=== PATIENT | female | born 1960 | race Caucasian/White ===

== ENCOUNTER 2021-08-30 08:51 | Outpatient (CLI) | payer OTHER, SELFPAY ==
--- NOTE | ~2021-08-30 | MM_ITS ---
EXAMINATION: MM screening [facility] BI w laura HISTORY: Screening mammogram TECHNIQUE: Craniocaudal and mediolateral oblique 3-D tomosynthesis images were obtained and synthetic 2-D images were generated. CAD analysis was submitted and interpreted. COMPARISON: 06/19/2019, 06/17/2019, 06/18/2018 BREAST PARENCHYMAL COMPOSITION: There are scattered areas of fibroglandular density. FINDINGS: Stable grouped calcifications in the left breast have previously undergone biopsy. There is no evidence of suspicious mass, calcification, or architectural distortion to suggest malignancy in either breast. There has been no suspicious interval change. IMPRESSION: 1. No mammographic evidence of malignancy. 2. Recommend routine screening mammography in one year. BI-RADS Category 2: Benign finding(s). Reviewed, dictated and finalized at location A. AG APPLIQUER
== END 2021-08-30 08:52 | disposition home or self-care (01) ==
LOC: ANHIMG 08:53
PROVIDERS: PCP Family Medicine; Visit Provider Obstetrics & Gynecology
DX: Z12.31 Encounter for screening mammogram for malignant neoplasm of breast (principal)
CPT/HCPCS: 77063; 77067

== ENCOUNTER 2022-02-08 09:19 | Outpatient (CLI) | payer BC, SELFPAY ==
[2022-02-08 09:58] LABS: Hemoglobin A1C 5.4 % (<5.7)
[2022-02-08 10:23] LABS: Alanine Aminotransferase 14 U/L (4-35); Albumin Level 4.5 g/dL (3.5-5.1); Alkaline Phosphatase 63 U/L (38-126); Anion Gap 7 mmol/L (8-16); Aspartate Amino Transferase 25 U/L (14-36); Bilirubin,Total 0.3 mg/dL (0.2-1.3); Blood Urea Nitrogen 9 mg/dL (7-17); Calcium 8.9 mg/dL (8.4-10.2); Carbon Dioxide 27 mmol/L (22-30); Chloride 105 mmol/L (98-107); Cholesterol 205 mg/dL (0-200); Estimated Glomerular Filt Rate > 60; Glucose 97 mg/dL (65-110); HDL Direct 58 mg/dL; Potassium 4.3 mmol/L (3.4-5.0); Sodium 139 mmol/L (137-145); Triglycerides 80 mg/dL (<150)
[2022-02-08 10:34] LABS: LDL Cholesterol Direct 100 mg/dL
== END 2022-02-08 09:20 | disposition home or self-care (01) ==
PROVIDERS: PCP Family Medicine; Visit Provider Family Medicine
DX: R73.03 Prediabetes (principal); Z76.89 Persons encountering health services in other specified circumstances; Z82.49 Family history of ischemic heart disease and other diseases of the circulatory system; Z83.3 Family history of diabetes mellitus; Z83.438 Family history of other disorder of lipoprotein metabolism and other lipidemia
CPT/HCPCS: 36415; 80053; 80061; 83036

== ENCOUNTER 2022-05-30 10:28 | Emergency (ER) | payer BC, SELFPAY ==
--- NOTE | 2022-05-30 10:29 | ED.EAR ---
HPI - Ear Problem General Chief complaint: Ear Stated complaint: fb ear/ringing Time Seen by Provider: 05/30/22 10:29 Source: patient Mode of arrival: ambulatory Limitations: no limitations History of Present Illness HPI Narrative: Ms. Mckinnon is a 61-year-old female patient presenting to the clinic today with complaints of possible foreign body in her right ear with some ringing. She reports she is having congestion and ringing in her right ear. She is unaware of having anything in her ear but thinks there may be some foreign body in her ear. She has mild pain. She denies any fever or chills. She denies any dizziness, nausea, or vomiting Related Data Home Medications Medication Instructions Recorded Confirmed estradiol 10 mg implant pellet mg subcut 06/29/21 02/09/22 estradiol-norethindrone acet 0.5 1 tablet PO DAILY 06/29/21 05/30/22 mg-0.1 mg tablet (Amabelz) Allergies Allergy/AdvReac Type Severity Reaction Status Date / Time oxaprozin Allergy Intermediate HIVES Verified 05/30/22 10:35 Review of Systems Review of Systems: Pertinent positives per HPI. Patient denies any fever, chills, rash, headache, visual changes, dizziness, cough, runny nose, sore throat, shortness of breath, chest pain, palpitations, nausea, vomiting, diarrhea, constipation, abdominal pain, or any urinary issues. PMFSH Surgical History Surgical History H/O: hysterectomy Family History Family History Father Hypertension Heart problem Cerebrovascular accident Mother Asthma Diabetes mellitus Depression Heart problem Thyroid disorder Social History Social History Alcohol intake: current Substance use: never Comments At the time of my signature, I reviewed and agree with the nursing past medical, surgical, social, and family history. There is no relevant family history pertinent to the patient complaint. Exam Narrative: General: Well-developed, well nourished, in no apparent distress Head: Normocephalic, atraumatic Eyes: Pupils equally round and reactive to light bilaterally, EOM intact, sclera and conjunctive clear, no discharge, lids normal Ears: Left TMs intact and clear, right TM intact, bulging with fluid behind the TM, left ear canal clear, right ear canal swollen erythematous with greenish discharge in the canal that was originally up against the tympanic membrane, ear lavage was performed which displaced the discharge, grossly hearing normal. Nose: Nares patent, clear nasal discharge, no inflammation, no sinus tenderness. Mouth: Oropharynx without lesions or masses, good dentition, MMM. Neck: Supple, trachea midline, no enlargement of anterior or posterior cervical nodes, no thyroid masses or goiter palpable. Cardio: Regular rate and rhythm, s1 and s2 normal, no murmur appreciated. Resp: Clear to auscultation bilaterally anteriorly and posteriorly, no rhonchi, rales, wheezing or rubs Course Course Emergency Course: Portions of this record may have been created with voice recognition software. Level of Care: Express Care Visit Vital Signs Vital signs: Vital signs reviewed Procedures Ear Wax Removal Right Ear: Ear Wax Removal Date: 05/30/22 Results: Re-examined: cerumen removed completely TM Examination: TM(s) intact, normal appearance (Fluid noted behind the right TM) Ear Canal Exam: other (Erythemic with greenish drainage) Patient Tolerated Procedure: well Complications: no problems Technique: ear canal irrigated Additional Comments: Verbal consent obtained for ear lavage. Risk and benefits explained to patient and they voiced understanding. Warm water was used to irrigate the right ear canal. Cerumen was successfully removed from ear canal. Patient tolerated wel
[2022-05-30 10:34] VITALS: BP 135/76; PULSE 79; RESP 16; TEMP 36.7; O2SAT 100
[2022-05-30 10:35] VITALS: BP 135/76; PULSE 79; RESP 16; TEMP 36.7; O2SAT 100
--- NOTE | 2022-05-30 10:43 | PC.NURSE ---
No foreign body found after right ear irrigation. 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
== END 2022-05-30 10:54 | disposition home or self-care (01) ==
PROVIDERS: Emergency Provider Nurse Practitioner Family; PCP Family Medicine
DX: H69.81 Other specified disorders of Eustachian tube, right ear (principal); H60.311 Diffuse otitis externa, right ear; H65.01 Acute serous otitis media, right ear; H61.21 Impacted cerumen, right ear
CPT/HCPCS: 69209; 99213; G0463

== ENCOUNTER 2022-08-16 09:54 | Outpatient (CLI) | payer BC, SELFPAY | END 2022-08-16 09:55 | disposition home or self-care (01) | LOC: ANHAUDIO 09:55 | PROVIDERS: PCP Family Medicine; Visit Provider Otolaryngology | DX: H91.93 Unspecified hearing loss, bilateral (principal) | CPT/HCPCS: 92557; 92567 ==

== ENCOUNTER 2023-01-16 09:19 | Outpatient (CLI) | payer BC, SELFPAY ==
[2023-01-16 18:56] LABS: Hematocrit 43.1 % (37.0-47.0); Hemoglobin 13.7 g/dL (12.0-15.0); Mean Corpuscular HGB Conc 31.8 g/dl (32-36); Mean Corpuscular Hemoglobin 30.2 pg (26-34); Mean Corpuscular Volume 95.1 fl (80-100); Mean Platelet Volume 11.1 fl (7.4-10.4); Platelet Count Result 261 k/mm3 (150-375); Red Blood Count 4.53 M/mm3 (4.2-5.4); Red Cell Distribution Width 13.5 % (11.5-14.5); White Blood Count 5.3 K/mm3 (4.5-10.0)
[2023-01-16 19:31] LABS: Alanine Aminotransferase 18 U/L (6-35); Albumin Level 4.3 g/dL (3.5-5.1); Alkaline Phosphatase 64 U/L (38-126); Anion Gap 7 mmol/L (8-16); Aspartate Amino Transferase 30 U/L (14-36); Bilirubin,Total 0.4 mg/dL (0.2-1.3); Blood Urea Nitrogen 12 mg/dL (7-17); Calcium 8.9 mg/dL (8.4-10.2); Carbon Dioxide 29 mmol/L (22-30); Chloride 102 mmol/L (98-107); Cholesterol 212 mg/dL (0-200); Estimated Glomerular Filt Rate > 60; Glucose 88 mg/dL (65-110); HDL Direct 52 mg/dL; Potassium 4.3 mmol/L (3.4-5.0); Sodium 138 mmol/L (137-145); Triglycerides 134 mg/dL (<150)
[2023-01-16 20:01] LABS: Thyroid Stimulating Hormone 0.603 uIU/mL (0.465-4.680)
[2023-01-16 20:36] LABS: LDL Cholesterol Direct 111 mg/dL
== END 2023-01-16 09:20 | disposition home or self-care (01) ==
LOC: ANHGOSHLAB 09:20
PROVIDERS: PCP Family Medicine; Visit Provider Family Medicine
DX: E78.5 Hyperlipidemia, unspecified (principal); Z83.438 Family history of other disorder of lipoprotein metabolism and other lipidemia; Z79.899 Other long term (current) drug therapy
CPT/HCPCS: 36415; 80053; 80061; 84443; 85027

== ENCOUNTER 2023-08-28 15:55 | Outpatient (CLI) | payer BC, SELFPAY ==
--- NOTE | ~2023-08-28 | MM_ITS ---
EXAMINATION: MM screening [facility] BI w laura HISTORY: Screening mammogram TECHNIQUE: Craniocaudal and mediolateral oblique 3-D tomosynthesis images were obtained and synthetic 2-D images were generated. CAD analysis was submitted and interpreted. COMPARISON: 08/30/2021 bilateral screening mammogram 06/19/2019 diagnostic right mammogram and right breast ultrasound examination 06/17/2019 bilateral screening mammogram BREAST PARENCHYMAL COMPOSITION: The breasts are heterogeneously dense, which may obscure small masses . FINDINGS: Biopsy markers noted on the left; history of prior benign left breast biopsy. Suggestion of some increased density in the right subareolar area on MLO view. Diagnostic right mammo gram is recommended, with ultrasound if required. Occasional scattered bilateral benign calcifications. Microcalcifications in the upper outer quadrant of the left breast were previously biopsied and reported benign pathology. Otherwise there is no evidence of suspicious mass, calcification, or architectural distortion to sug gest malignancy in either breast. There has been no suspicious interval change other than the possibl e increased density in the right subareolar area on the MLO view.. IMPRESSION: 1. Suggestion of interval increased density in the subareolar area of the right breast on MLO view 2. Diagnostic right mammogram is recommended, with ultrasound if required. BI-RADS Category 0: Incomplete: Needs additional imaging evaluation. Reviewed, dictated and finalized at location A. VISION CAMERA OPERATOR
== END 2023-08-28 15:56 | disposition home or self-care (01) ==
LOC: ANHIMG 16:03
PROVIDERS: PCP Family Medicine; Visit Provider Obstetrics & Gynecology
DX: Z12.31 Encounter for screening mammogram for malignant neoplasm of breast (principal); R92.8 Other abnormal and inconclusive findings on diagnostic imaging of breast
CPT/HCPCS: 77063; 77067

== ENCOUNTER 2023-09-19 12:37 | Outpatient (CLI) | payer BC, SELFPAY ==
--- NOTE | ~2023-09-19 | MMUS_ITS ---
EXAMINATION: US breast RT limited, MM diagnostic [facility] RT w laura HISTORY: Increased prominence of right periareolar soft tissue TECHNIQUE: Additional 3-D tomosynthesis images of the right breast were performed and synthetic 2-D i mages were generated. CAD analysis was submitted and interpreted. High resolution Limited right breas t ultrasound was performed. COMPARISON: Comparison to multiple prior studies sequentially, with oldest reviewed study dated 06/17. BREAST PARENCHYMAL COMPOSITION: Breast composed of scattered areas of fibroglandular density FINDINGS: MAMMOGRAPHIC FINDINGS: There are no suspicious masses, calcifications or architectural distortion right breast to suggest ma lignancy. ULTRASOUND: Limited right breast ultrasound: There are branching dilated periareolar ducts. No suspicious solid m asses. IMPRESSION: 1. No evidence for malignancy in the right breast. 2. Routine yearly screening mammogram and regular clinical breast examination are recommended. BI-RADS Category 1: Negative Reviewed, dictated and finalized at location A. GER HEAV[employer] EQUIPMENT IMPRESSION: 1. No evidence for malignancy in the right breast. 2. Routine yearly screening mammogram and regular clinical breast examination a re recommended. BI-RADS Category 1: Negative
== END 2023-09-19 12:38 | disposition home or self-care (01) ==
PROVIDERS: PCP Family Medicine; Visit Provider Obstetrics & Gynecology
DX: R92.8 Other abnormal and inconclusive findings on diagnostic imaging of breast (principal)
CPT/HCPCS: 76642; 77061; 77065; G0279

== ENCOUNTER 2024-02-17 08:38 | Outpatient (CLI) | payer BC, SELFPAY ==
[2024-02-17 14:07] LABS: Hematocrit 45.3 % (37.0-47.0); Hemoglobin 14.1 g/dL (12.0-15.0); Mean Corpuscular HGB Conc 31.1 g/dl (32-36); Mean Corpuscular Hemoglobin 29.8 pg (26-34); Mean Corpuscular Volume 95.8 fl (80-100); Mean Platelet Volume 11.4 fl (7.4-10.4); Platelet Count Result 269 k/mm3 (150-375); Red Blood Count 4.73 M/mm3 (4.2-5.4); Red Cell Distribution Width 13.5 % (11.5-14.5); White Blood Count 5.2 K/mm3 (4.5-10.0)
[2024-02-17 14:47] LABS: Alanine Aminotransferase 23 U/L (6-35); Albumin Level 4.5 g/dL (3.5-5.1); Alkaline Phosphatase 63 U/L (38-126); Anion Gap 6 mmol/L (4-12); Aspartate Amino Transferase 44 U/L (14-36); Bilirubin,Total 0.5 mg/dL (0.2-1.3); Blood Urea Nitrogen 17 mg/dL (7-17); Calcium 9.4 mg/dL (8.4-10.2); Carbon Dioxide 30 mmol/L (22-30); Chloride 102 mmol/L (98-107); Cholesterol 198 mg/dL (0-200); Estimated Glomerular Filt Rate > 60; Glucose 76 mg/dL (65-110); HDL Direct 62 mg/dL; Potassium 4.2 mmol/L (3.4-5.0); Sodium 138 mmol/L (137-145); Triglycerides 96 mg/dL (<150)
[2024-02-17 14:51] LABS: LDL Cholesterol Direct 106 mg/dL
[2024-02-17 14:57] LABS: Vitamin D 25 Hydroxy 60.2 ng/mL
[2024-02-17 14:58] LABS: Hemoglobin A1C 5.4 % (<5.7)
[2024-02-17 15:03] LABS: Thyroid Stimulating Hormone 0.637 uIU/mL (0.465-4.680)
== END 2024-02-17 08:39 | disposition home or self-care (01) ==
LOC: ANHGOSHLAB 08:39
PROVIDERS: PCP Family Medicine; Visit Provider Nurse Practitioner
DX: Z00.00 Encounter for general adult medical examination without abnormal findings (principal); E55.9 Vitamin D deficiency, unspecified; R73.03 Prediabetes
CPT/HCPCS: 36415; 80053; 80061; 82306; 83036; 84443; 85027

== ENCOUNTER 2024-08-22 08:36 | Outpatient (CLI) | payer MEDICARE, OTHER, SELFPAY ==
[2024-08-22 09:19] LABS: Hematocrit 42.4 % (37.0-47.0); Hemoglobin 13.7 g/dL (12.0-15.0); Mean Corpuscular HGB Conc 32.3 g/dl (32-36); Mean Corpuscular Hemoglobin 28.5 pg (26-34); Mean Corpuscular Volume 88.1 fl (80-100); Mean Platelet Volume 10.7 fl (7.4-10.4); Platelet Count Result 220 k/mm3 (150-375); Red Blood Count 4.81 M/mm3 (4.2-5.4); Red Cell Distribution Width 14.9 % (11.5-14.5); White Blood Count 4.2 K/mm3 (4.5-10.0)
[2024-08-22 09:31] LABS: Alanine Aminotransferase 29 U/L (6-35); Alkaline Phosphatase 60 U/L (38-126); Anion Gap 4 mmol/L (4-12); Aspartate Amino Transferase 29 U/L (14-36); Bilirubin,Total 0.4 mg/dL (0.2-1.3); Blood Urea Nitrogen 21 mg/dL (7-17); Calcium 8.8 mg/dL (8.4-10.2); Carbon Dioxide 28 mmol/L (22-30); Chloride 107 mmol/L (98-107); Cholesterol 166 mg/dL (0-200); Estimated Glomerular Filt Rate > 60; Glucose 93 mg/dL (65-110); HDL Direct 50 mg/dL; Potassium 4.4 mmol/L (3.4-5.0); Sodium 139 mmol/L (137-145); Triglycerides 89 mg/dL (<150)
[2024-08-22 09:42] LABS: LDL Cholesterol Direct 81 mg/dL
[2024-08-22 10:01] LABS: Thyroid Stimulating Hormone 0.703 uIU/mL (0.465-4.680)
== END 2024-08-22 08:37 | disposition home or self-care (01) ==
LOC: ANHLAB 08:38
PROVIDERS: PCP Family Medicine; Visit Provider Family Medicine
DX: E78.5 Hyperlipidemia, unspecified (principal); F41.9 Anxiety disorder, unspecified; R73.03 Prediabetes; Z79.899 Other long term (current) drug therapy
CPT/HCPCS: 36415; 80053; 80061; 84443; 85027

== ENCOUNTER 2024-11-19 10:44 | Outpatient (CLI) | payer MEDICARE, OTHER, SELFPAY ==
[2024-11-19 12:33] LABS: Influenza A QL RT-PCR Negative (Negative); Influenza B QL RT-PCR Negative (Negative); RSV RNA, RT-PCR Negative (Negative); SARS-CoV-2 RNA PCR Negative (Negative)
== END 2024-11-19 10:45 | disposition home or self-care (01) ==
PROVIDERS: PCP Family Medicine; Visit Provider Family Medicine
DX: R50.9 Fever, unspecified (principal); R69 Illness, unspecified
CPT/HCPCS: 87637

== ENCOUNTER 2025-02-20 08:16 | Outpatient (CLI) | payer MEDICARE, OTHER, SELFPAY ==
--- OUTSIDE RECORDS SUMMARY | 2025-02-20 08:21 | XMS_ITS | Continuity of Care Document ---
Author Organization [facility] Address [address] [place] [address] Phone Care Team Providers Care Radiation Protection Technician Name Role Phone Miles Ugalde MD Unavailable Unavailable Allergies, Adverse Reactions, Alerts Substance Reaction Status Criticality No Known Allergies Active No Inform ation Medications Medication Instructions Dosage Effective Dates (start - stop) Status Comments tobramycin 0.3 %-dexamethasone 0.1 % eye drops,suspension instill 1 drop by ophthalmic route in the right eye four times a day - Active LOTEMAX (unknown strength) instill 1 - 2 drop by ophthalmic route 3 times every day into the lower conjunctival sac of the affected eye(s) beginning 24 hours after surgery and continuing throughout the first 2weeks of the post operative period. Not Available - Active Systane Gel 0.3 % eye gel - Active hormone pill (unknown strength) Not Available - Active Procedures Procedure Date Post-op Follow-up Visit Removal Of Eye Lesion Post-op Follow-up Visit Removal Of Eye Lesion Eye Exam, New Patient Fundus Photography W/ Report Advance Directives Directive Yes / No Effective Date File Name No Information Encounters Encounter Description Practice Location Reason(s) For Visit Diagnoses Date Provider Providers Copied on Encounter [facility], [facility] [address], [place], [place], [id number], [place] tel:[phone] SEC Rony DOVER Professional Post op SK OD (chief complaint) Encounter for examination following surgery 5 Aftab Aquino. [address] [facility], [facility] A, [place], [place], [address], [place]. tel:[phone] Referring Provider: Darius Min OD, [address] [place] [address], [facility]. tel:[phone] [facility], [facility] [employer] [address], [place], [place], [address], [place] tel:[phone] SEC Rony DOVER Professional Procedure (chief complaint) Salzmann's corneal degen, right eye Sep- 5 [place] Chaitanya. [facility] [employer] [facility], [address], [place], [address], [place]. tel:[phone] Referring Provider: Darius Min OD, [address] [place] [address], [address]. tel:[phone] [facility], [facility] [employer] [address], [place], [place], [address], [place] tel:[phone] SEC Ceferino Kinsey 4 DAY PO SK OS (chief complaint) Follow-up examination after surgery 5 [place] Chaitanya. [facility] [employer] [facility], [address], [place], [place], [address], [place]. tel:[phone] Referring Provider: Darius Min OD, [address] [place] [address], [address]. tel:[phone] [facility], [facility] [employer] [address], [place], [place], [address], [place] tel:[phone] SEC Ceferino Kinsey Procedure (chief complaint) Nodular corneal degeneration Dec- 5 [place] Chaitanya. [facility] [employer] [facility], [address], [place], [address], [place]. tel:[phone] Referring Provider: Darius Min OD, [address] [place] [address], [address]. tel:[phone] [facility], [address], [place], [place], [address], tel:[phone] BUD DOVER Professional Complete Eye Exam (chief complaint) Nodular corneal degeneration 0 5 [place] Chaitanya. [address], [address], [place], [place], [address], [place]. tel:[phone] Referring Provider: Chaitanya Montesinos, [address], [place], [address]. tel:[phone] Family History Family Member Type Diagnosis Age At Onset Problem (finding) Family history of Diabe alethea mellitus Problem (finding) Family history of glauc elizabeth Payers Payer name Insurance type Covered democrat ID Authoriza tion(s) No Information Social History Type Description Quantity Date Captured Comments Alcohol Use Details wine 1 glass weekly Caffeine Use Details coffee 2 cups per day Tobacco Use Status Never smoked tobacco 2014 Smoking Status Never smoker Non-Smoking Tobacco Use Details : No Details Available : No Details Available Sex Female Chief Complaint And Reason For Visit From encounter dated '09/16/2015 09:15'. Post op SK OD (chief complaint). Description: The 55 year old female presents for a Post op SK OD. Patient denies any v/a changes at this time OD. Patient denies any pain or discomfort at this time OD. Patient using Tobra dex QID OD, and no preservative AT's QID OD. Reason For Referral Reason For Referral No Information History Of Present Illness Encounter Date Complaint History Of Prese nt Illness Post op SK OD The 55 year old female presents for a Post op SK OD. Patient denies any v/a changes at this time OD. Patient denies any pain or discomfort at this time OD. Patient using Tobra dex QID OD, and no preservative AT's QID OD. Procedure The 55 year old female presents for and SK OD, patient complains of some discomfort OD, states her v/a is stable. Patient uses no preservative AT's QID OD. 4 DAY PO SK OS The 54 year old female presents for 4 DAY PO SK OS. Patient reports OS is feeling good, no pain or discomfort. Patient is using the Lotemax TID OS as discussed. Procedure The 54 year old female presents for a SK procedure OS. Pt states OU very dry. Pt states v/a is stable. Pt using Lotemax TID OU, Systane Gel OU QHS, and [place] gtt OU QDAY. Complete Eye Exam The 54 year ol d female presents for Complete Eye Exam. Patient reports she has been dealing with very dry eyes recently OS>OD. Patient saw her [employer] Dr. Min and was given some Systane to use until she could be seen. Patient states it has helped minimally. No history of eye surgery/trauma. Functional Status Date Functional Assessmen t No Information Instructions Date Instruction Additional Infor mation Return in 2 weeks [facility] Miles Ugalde M.D. for post op exam. Related to Encounter for examination following surgery Follow up - Return i n 2 weeks with Miles Ugalde M.D. for post op exam. Related to Encounter for examination following surgery Impression/Plan - OD healing relatively well. BCL removed in the office today, will leave lens out at this time. Instructed patient will call office if desires BCL for comfort. Continue Tobradex QID OD x 5 days then stop. Return to clinic in 2 weeks for follow up visit or sooner with any problems. Related to Encounter for examination following surgery Follow up - Saturday w ashyl Ugalde post op SK OD Impression/Plan - Di scussed dx with pt. R/A/B of SK discussed and will proceed as scheduled today. 1 gtt Prolensa given prior to procedure. ERX Tobramycin dexamethasone to [facility] on . Use OD QID. Pt should return on Saturday to follow up with Dr. Ugalde. - BCL removed at i t lamp, looks great. Use gtts QID today, TID for 1 day, BID for 1 day, qday for 1 day then stop.Rec using ATs, Follow up in 2 weeks for final measurements. Related to Follow-up examination after surgery - Discussed risks, a lts and benefits of SK and will proceed today with os as scheduled. Gtts reviewed, return here on Saturday or Saturday AM on follow up. 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 Discussed risks and benefits and the need for a bandage contact lens after procedure. Patient understands and elects treatment. Schedule superficial keratectomy. Letter dictated to Dr. Keenan. 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 OD Patient Care Teams Name Effective Dates (start - stop) Status Members No Information
[2025-02-20 08:53] LABS: Hematocrit 43.3 % (37.0-47.0); Hemoglobin 13.5 g/dL (12.0-15.0); Mean Corpuscular HGB Conc 31.2 g/dl (32-36); Mean Corpuscular Hemoglobin 28.8 pg (26-34); Mean Corpuscular Volume 92.3 fl (80-100); Mean Platelet Volume 11.1 fl (7.4-10.4); Platelet Count Result 212 k/mm3 (150-375); Red Blood Count 4.69 M/mm3 (4.2-5.4); Red Cell Distribution Width 14.4 % (11.5-14.5); White Blood Count 5.6 K/mm3 (4.5-10.0)
[2025-02-20 09:09] LABS: Alanine Aminotransferase 22 U/L (6-35); Albumin Level 4.3 g/dL (3.5-5.1); Alkaline Phosphatase 47 U/L (38-126); Anion Gap 7 mmol/L (4-12); Aspartate Amino Transferase 30 U/L (14-36); Bilirubin,Total 0.5 mg/dL (0.2-1.3); Blood Urea Nitrogen 18 mg/dL (7-17); Calcium 8.8 mg/dL (8.4-10.2); Carbon Dioxide 28 mmol/L (22-30); Chloride 105 mmol/L (98-107); Cholesterol 206 mg/dL (0-200); Estimated Glomerular Filt Rate > 60; Glucose 87 mg/dL (65-110); HDL Direct 50 mg/dL; Sodium 140 mmol/L (137-145); Triglycerides 98 mg/dL (<150)
[2025-02-20 09:19] LABS: LDL Cholesterol Direct 101 mg/dL
[2025-02-20 09:39] LABS: Thyroid Stimulating Hormone 0.887 uIU/mL (0.465-4.680)
== END 2025-02-20 08:17 | disposition home or self-care (01) ==
PROVIDERS: PCP Family Medicine; Visit Provider Family Medicine
DX: E78.5 Hyperlipidemia, unspecified (principal); Z79.899 Other long term (current) drug therapy
CPT/HCPCS: 36415; 80053; 80061; 84443; 85027

== ENCOUNTER 2025-04-14 15:52 | Outpatient (CLI) | payer MEDICARE, OTHER, SELFPAY | END 2025-04-14 15:53 | disposition home or self-care (01) | LOC: GOSHIMG 15:52 | PROVIDERS: PCP Nurse Practitioner; Visit Provider Nurse Practitioner | DX: M25.561 Pain in right knee (principal) | CPT/HCPCS: 73562 ==

== ENCOUNTER 2025-04-25 08:29 | Outpatient (CLI) | payer MEDICARE, OTHER, SELFPAY ==
--- NOTE | ~2025-04-25 | MR_ITS ---
MRI of the right knee Clinical history: Pain Technique: Coronal proton density and proton density-weighted images, sagittal proton-density and T2 fat-sat images, and axial proton-density fat-saturated images were acquired. Findings: Anterior and posterior cruciate ligaments are intact. Medial collateral ligament and the la teral collateral ligament, as are intact. Popliteus tendon is intact. Medial and lateral menisci are intact, without evidence of tear. There is moderate to high-grade chondral lesion at the central aspect of the femoral trochlea. There is mild to moderate chondral thinning of the medial femoral condyle. Bone marrow signals are unremark able. Extensor mechanism is intact. No significant joint effusion or Andres's cyst. Impression: Minimal degenerative change overall, as above. No ligamentous injury or meniscal tear. Reviewed, dictated and finalized at [facility]. Impression: Minimal degenerative change overall, as above. No ligamentous injury or meniscal tear.
--- OUTSIDE RECORDS SUMMARY | 2025-04-25 08:33 | XMS_ITS | Continuity of Care Document ---
Author Organization [facility] Address [address] [place] [address] Phone Care Team Providers Care Used Car Manager Name Role Phone Miles Ugalde MD Unavailable Unavailable Allergies, Adverse Reactions, Alerts Substance Reaction Status Criticality No Known Allergies Active No Inform ation Medications Medication Instructions Dosage Effective Dates (start - stop) Status Comments tobramycin 0.3 %-dexamethasone 0.1 % eye drops,suspension instill 1 drop by ophthalmic route in the right eye four times a day - Active hormone pill (unknown strength) Not Available - Active Systane Gel 0.3 % eye gel - Active LOTEMAX (unknown strength) instill 1 - 2 drop by ophthalmic route 3 times every day into the lower conjunctival sac of the affected eye(s) beginning 24 hours after surgery and continuing throughout the first 2weeks of the post operative period. Not Available - Active Procedures Procedure Date Post-op Follow-up Visit Removal Of Eye Lesion Post-op Follow-up Visit Removal Of Eye Lesion Eye Exam, New Patient Fundus Photography W/ Report Advance Directives Directive Yes / No Effective Date File Name No Information Encounters Encounter Description Practice Location Reason(s) For Visit Diagnoses Date Provider Providers Copied on Encounter [facility], [facility] [address], [place], [place], [address], [place] tel:[phone] SEC Rony DOVER Professional Post op SK OD (chief complaint) Encounter for examination following surgery 5 Aftab Aquino. [address] [facility], [facility] A, [place], [place], [address], [place]. tel:[phone] Referring Provider: Darius Min OD, [address] [place] [address], [facility] tel:[phone] [facility], [facility] [employer] [address], [place], [place], [address], [place] tel:[phone] SEC Rony DOVER Professional Procedure (chief complaint) Salzmann's corneal degen, right eye Sep- 5 [place] Chaitanya. [facility] [employer] [facility], [address], [place], [address], [place]. tel:[phone] Referring Provider: Darius Min OD, [address] [place] [address], [address]. tel:[phone] [facility], [facility] [employer] [address], [place], [place], [address], [place] tel:[phone] SEC Ceferino Kinsey 4 DAY PO SK OS (chief complaint) Follow-up examination after surgery 5 [place] Chaitanya. [facility] [employer] [facility], [address], [place], [place], [address], [place]. tel:[phone] Referring Provider: Darius Min OD, [address] [place] [address], [address]. tel:[phone] [facility], [facility] [employer] [address], [place], [place], [address], [place] tel:[phone] SEC Ceferino Kinsey Procedure (chief complaint) Nodular corneal degeneration Dec- 5 [place] Chaitanya. [facility] [employer] [facility], [address], [place], [address], [place]. tel:[phone] Referring Provider: Darius Min OD, [address] [place] [address], [address]. tel:[phone] [facility], [address], [place], [place], [address], tel:[phone] BUD DOVER Professional Complete Eye Exam (chief complaint) Nodular corneal degeneration 0 5 [address] Chaitanya. [address] [employer], [address], [place], [place], [address], [place]. tel:[phone] Referring Provider: Chaitanya Montesinos, [address], [place], [address]. tel:[phone] Family History Family Member Type Diagnosis Age At Onset Problem (finding) Family history of Diabe alethea mellitus Problem (finding) Family history of glauc elizabeth Payers Payer name Insurance type Covered libertarian ID Authoriza tion(s) No Information Social History [...] TID OU, Systane Gel OU QHS, and [place] gtt OU QDAY. Complete Eye Exam The 54 year ol d female presents for Complete Eye Exam. Patient reports she has been dealing with very dry eyes recently OS>OD. Patient saw her [employer] Dr. Min and was given some Systane to use until she could be seen. Patient states it has helped minimally. No history of eye surgery/trauma. Functional Status Date Functional Assessmen t No Information Instructions Date Instruction Additional Infor mation Return in 2 weeks [facility] Miles Ugalde M.D. for post op exam. [...] following surgery Follow up - Saturday w ashly Ugalde post op SK OD Impression/Plan - Di scussed dx with pt. R/A/B of SK discussed and will proceed as scheduled today. 1 gtt Prolensa given prior to procedure. ERX Tobramycin dexamethasone to [facility] on . Use OD QID. Pt [...]
== END 2025-04-25 08:30 | disposition home or self-care (01) ==
PROVIDERS: PCP Family Medicine; Visit Provider Nurse Practitioner
DX: M25.561 Pain in right knee (principal)
CPT/HCPCS: 73721

== ENCOUNTER 2025-09-17 09:26 | Outpatient (CLI) | payer MEDICARE, OTHER, SELFPAY ==
--- NOTE | ~2025-09-17 | DEXA_ITS ---
Bone Density Report Name: YAIMA WADDELL Age: 65 Sex: Female Ethnicity: White Date of : 1960 Indication: postmenopausal; screening for osteoporosis; parental hip fracture; hysterectomy; Referring Provider: JACKIE MORELOS Study: Bone densitometry was performed. Exam Date: September 17, 2025 Accession number: [id number] Bone Density: Region BMD T-score Z-score Classification AP Spine(L1-L4) 1.038 -0.1 1.8 Normal Femoral Neck (Left) 0.817 -0.3 1.3 Normal Total Hip (Left) 0.983 0.3 1.6 Normal Femoral Neck (Right) 0.825 -0.2 1.4 Normal Total Hip (Right) 0.969 0.2 1.5 Normal Total Hip Mean 0.976 0.3 1.6 Normal World Health Organization criteria for BMD impression classify patients as: Normal (T-score at or above -1.0), Osteopenia (T-score between -1.0 and -2.5), or Osteoporosis (T-score at or below -2.5). 10-year Fracture Risk: FRAX not reported because: All T-scores for Spine Total, Hip Total, Femoral Neck at or above -1.0 Clinical Information Provided by Patient: Parent has had a hip fracture Has the following medical conditions: Hysterectomy Patient maximum height was 66 Menopause Age: 46 Drinks caffeinated beverages Onset of menses at age 11 Number of children 2 Impression: The patient has normal bone mass. The patient has risk factors, including: parental hip fracture. Discussion: BONE DENSITY IS ABOVE THE MINIMUM DESIRABLE LEVEL AT ALL SKELETAL SITES TESTED. This patient?s bone mineral density is above the minimum desirable level (T-score -1.0 or better) at all sites measured. The patient should follow a healthful lifestyle (good nutrition with adequate calcium and vitamin D, and appropriate weight-bearing exercise). Follow-Up: Consider repeating this study in 5 years or sooner if there is some new clinical indication. Reported by: ARTIE on 09/17/2025 10:11:00 AM. Reviewed, dictated and finalized at location A.
--- NOTE | ~2025-09-17 | MM_ITS ---
EXAMINATION: MM screening steven BI w laura HISTORY: Screening. TECHNIQUE: Craniocaudal and mediolateral oblique 3-D tomosynthesis images were obtained and synthetic 2-D images were generated. CAD analysis was submitted and interpreted. COMPARISON: 2022, 2020, and 2018. BREAST PARENCHYMAL COMPOSITION: 3 FINDINGS: No suspicious masses are seen. There are benign-appearing calcifications on the left with a biopsy clip close to them. There are no suspicious calcifications. No unexplained architectural distortion is seen. There are no skin or nipple abnormalities identified. There is no adenopathy seen on the images submitted. IMPRESSION: No mammographic evidence to suggest malignancy is seen. The patient may return to screening mammography as per ACR guidelines. BI-RADS 2 - Benign. Reviewed, dictated and finalized at location C. [facility]
== END 2025-09-17 09:27 | disposition home or self-care (01) ==
LOC: ANHFOHIMG 09:27
PROVIDERS: PCP Family Medicine; Visit Provider Family Medicine
DX: Z12.31 Encounter for screening mammogram for malignant neoplasm of breast (principal); M85.88 Other specified disorders of bone density and structure, other site; Z13.820 Encounter for screening for osteoporosis
CPT/HCPCS: 77063; 77067; 77080